=== PATIENT | female | born 1930 | race Caucasian/White ===

== ENCOUNTER 2020-09-03 20:51 | Inpatient (IN) | payer OTHER ==
[~2020-09-03] VITALS: Ht 167.6 cm; Wt 64.4 kg
[2020-09-03 20:57] VITALS: BP 184/75
[2020-09-03 21:22] LABS: ABSOLUTE NEUTROPHILS 8.9 thou/uL (1.4-8.2); BASOPHILS 0.4 % (0.0-2.0); EOSINOPHILS 0.7 % (0.0-3.0); HEMATOCRIT 48.9 % (37.0-47.0); HEMOGLOBIN 15.8 gm/dL (12.0-15.0); MCH 29.8 pg (26.0-34.0); MCHC 32.3 g/dL (28.0-37.0); MCV 92.4 fL (80.0-100.0); MONOCYTES 8.3 % (1.0-8.0); PLATELET COUNT 182 thou/uL (150-400); POLYS 76.6 % (36.0-66.0); RBC 5.29 mil/uL (4.20-5.00); RDW 13.1 % (10.5-14.5); WBC 11.6 thou/uL (4.0-11.0)
[2020-09-03 21:26] LABS: ANION GAP 8 mmol/L (7-16); BUN 25 mg/dL (7-18); CALCIUM 9.3 mg/dL (8.5-10.1); CHLORIDE 100 mmol/L (98-107); CO2 29 mmol/L (21-32); CREATININE 1.2 mg/dL (0.6-1.0); GLUCOSE 159 mg/dL (74-106); POTASSIUM 3.6 mmol/L (3.5-5.1); SODIUM 137 mmol/L (136-145)
[2020-09-03 21:36] LABS: ALBUMIN 3.5 g/dL (3.4-5.0); LIPASE 10481 U/L (73-393); SGOT 147 U/L (15-37); SGPT 82 U/L (14-59); TOTAL BILIRUBIN 0.7 mg/dL (0.2-1.0); TOTAL PROTEIN 7.3 g/dL (6.4-8.2); TROPONIN-I <0.06 ng/mL (<0.06)
[2020-09-03] MEDS ORDERED: CELEXA 20 MG TA20 MG PO (22:06)
[2020-09-03] MEDS ORDERED: MEMANTINE HCL10 MG PO (22:07)
[2020-09-03] MEDS ORDERED: RIVASTIGMINE1 EAC1 TRANSDERM (22:08)
[2020-09-03] MEDS ORDERED: DESYREL150 MG PO (22:08)
--- NOTE | 2020-09-03 22:40 | NUR ---
PATIENT AMBULATED WITH STANDBY ASSISTANCE WITH STEADY GAIT TO RESTROOM AT THIS TIME.
[2020-09-03 23:07] LABS: URINE BILIRUBIN NEGATIVE (Negative); URINE BLOOD 2+ (Negative); URINE CLARITY CLOUDY; URINE COLOR YELLOW; URINE GLUCOSE-RANDOM* TRACE (Negative); URINE KETONES NEGATIVE (Negative); URINE PROTEIN (DIPSTICK) TRACE (Negative); URINE SPECIFIC GRAVITY 1.025 (1.005-1.035)
[2020-09-03 23:08] LABS: URINE LEUKOCYTES-REFLEX 3+ (Negative); URINE NITRITE-REFLEX POSITIVE (Negative)
[2020-09-03 23:36] LABS: SQUAMOUS 0-3 Few /LPF (0-3); URINE WBC-REFLEX >25 Many /HPF (0-5)
[2020-09-03 23:37] LABS: CASTS None Seen /LPF (None Seen); CRYSTALS None Seen /LPF (None Seen); MUCUS 0-3 Light strn/LPF (None Seen); URINE RBC 3-10 Few /HPF (0-2)
[2020-09-04] VITALS (8 sets, daily range): BP systolic 122–168; BP diastolic 63–82
--- NOTE | 2020-09-04 02:47 | NUR ---
PT ADMITTED FROM ED.ARRIVED TO UNIT VIA W/C ACCOMPANIED BY THE ED STAFF.PT IS ALERT TO SELF,PLEASANTLY CONFUSED AND FORGETFUL.FOLLOWS SIMPLE COMMANDS BUT HAS VERY POOR SHORT TERM MEMORY.H/O DEMENTIA.ORIENTED TO RM AND UNIT ACTIVITIES.HAS A DPOA WHO IS HER DAUGHTER DILCIA.ADMITTING DX UTI/GALLSTONES,PANCREATITIS AND CHOLECYSTITIS.PT DENIES ANY PAIN DURING ADMISSION ASSESSMENTS.ASSESSMENT COMPLETED DOCUMENTED.GI CONSULT ORDERED AND POC TO FOLLOW UP WITH THE PT.DENIES N/V.UP TO BATHROOM WITH A STEADY GAIT.NPO AT THIS TIME.SEE OTHER INTERVENTIONS DOCUMENTED.PT DENIES ANY ACUTE DISTRESS AT THIS TIME.HER DAUGHTER TO SIGN ALL THE CONSENTS FORMS WHEN SHE RETURNS TODAY.WILL CONT WITH CURRENT MANAGEMENT.
--- NOTE | 2020-09-04 05:18 | NUR ---
Pt Covid Positive,results called to [facility] [facility]ENT as well as the supervisor hospitality house.Tried to contact albaro Vang and left voicemail to call the unit.Pt not symptomatic at this time.Pt to transfer to .
--- NOTE | 2020-09-04 06:56 | NUR ---
PT TRANSFERRES FROM 4TH FLOOR. CONFUSED . STM LOSS NOTED. REORIENTED SEVERAL TIMES. CALL LIGHT IN REACH. BED ALARM ON. BED DOWN IN LOW LOCKED POSITION. NS AT 100 STARTED ORDERED RIGHT WRIST. CARE PLAN UPDATED.
--- NOTE | 2020-09-04 07:08 | EKG ---
[address] [address] ELECTROCARDIOGRAM REPORT Name: JOE GARCIA Room #: 352-P ADM IN M.R.#: [id number] Admission: 09/04/20 Attend Phys: Britton Marlow MD Discharge: Date of : [birth year] Report #: [id number] [facility] ED Test Date: 2020-09-03 Test Time: 20:54:32 Pat Name: JOE GARCIA Department: Room: [facility] Gender: F Credit Risk Officer: ESTELLA : 1930 Requested By: Philip Bob Order Number: [id number] : Zachary Palmer Measurements Intervals [place] Rate: 79 P: 34 HI: 132 QRS: 1 QRSD: 81 T: 28 QT: 379 QTc: 435 Interpretive Statements Sinus rhythm Borderline T abnormalities, anterior leads No previous ECG available for comparison Electronically Signed On 09-04-2020 7:08:36 FANCY SEWER by Zachary Palmer [email or web address] <ELECTRONICALLY SIGNED> By: Zachary Palmer MD, [facility] 09/04/20 [phone] [id number] Zachary Palmer MD, FACC /EPI
--- NOTE | 2020-09-04 16:08 | NUR ---
ASSUMED CARE OF PT AT 0700. PT PLEASANTLY CONFUSED AND FORTGETFUL. INADVERTENTLY PULLING OUT IV'S EVERYTIME SHE HAS TO USE BATHROOM. PT UP W/ STEADY GAIT, AMBULATING AROUND ROOM INDEPEDENTLY. DISCUSSED WITH PHYSICIAN ABOUT CEASING IV FLUIDS SEEING THAT SHE HAS PULLED OUT 3 IV'S IN LAST 8 HOURS.IV TEAM UNABLE TO PLACE IV IN UPPER ARM WHERE IT IS HARDER TO REACH. IV CURRENTLY SALINE LOCKED - GI AND HOSPITALIST AWARE. 2ND COVID SWAB PENDING. DAUGHTER UPDATED REGARDING PATIENTS PLAN OF CARE - AGREEABLE. DTR SAYS SHE WILL BRING PATIENTS GLASSES TO FACILITY SO SHE IS ABLE TO READ HER MAGAZINES. WCM.
--- NOTE | 2020-09-04 20:21 | NUR ---
PT CONFUSED. GETS OOB FREQUENTLY. HS MEDS GIVEN TO HELP HER CALM DOWN. COVID NEGATIVE. ATTEMPTED TO NOTIFY [facility]ACH WORKER SHERWIN. WAITING FOR CALL BACK. IVFS OFF .PT PULLED OOUT IV SEVERA;L TIMES TODAY. PT ON CLEAR LIQUIDS NOW.
--- NOTE | 2020-09-05 00:34 | NUR ---
SECOND COVID NEGJACKELYN. CLARIFIED [facility] DR DAVIDSON IF PT COULD BE TRANSFERRED OFF FLOOR. WE ARE RERUNNING TYRELL TRUJILLO . WAITING FOR RESULTS.
[2020-09-05 01:06] LABS: GLYCOHEMOGLOBIN (HGB A1C) 6.3 % (4.8-5.6)
[2020-09-05 04:01] VITALS: BP 131/50
[2020-09-05 05:36] LABS: MCH 30.3 pg (26.0-34.0); MCHC 33.4 g/dL (28.0-37.0); MCV 90.7 fL (80.0-100.0); RBC 4.96 mil/uL (4.20-5.00); RDW 13.1 % (10.5-14.5); WBC 4.4 thou/uL (4.0-11.0)
[2020-09-05 05:54] LABS: ALBUMIN 3.3 g/dL (3.4-5.0); CREATININE 1.2 mg/dL (0.6-1.0); POTASSIUM 3.5 mmol/L (3.5-5.1); TOTAL BILIRUBIN 0.8 mg/dL (0.2-1.0); TOTAL PROTEIN 6.8 g/dL (6.4-8.2)
--- NOTE | 2020-09-05 06:32 | NUR ---
PT PROGRESSING TOWARD D/C GOALS. VSS. COVID TEST ON 09/04 105 RERAN ORDERED AND CAME BACK NEGATIVE. DR DAVIDSON NOTIFIED. PT MAY TRANSFER OFF FLOOR WHEN BED AVAILABLE. PUBLIC HEALTH WORKER WAS NOTIFIED.
[2020-09-05 07:25] VITALS: BP 147/76
--- NOTE | 2020-09-05 10:25 | NUR ---
care assumed at 0700. pt alert and oriented x2, able to follow simple conversation. pt is demented and can be impulsive at times. fall precaution in place. dr. perez spoke to pt daughter and she wants her mother d/c, [facility] d/c due order for pt discharge.
[2020-09-05] MEDS ORDERED: CEFUROXIME500 MG PO (11:46)
[2020-09-05] MEDS ORDERED: ACETAMINOPHEN325 M1 PO (11:46)
[2020-09-05 12:13] VITALS: BP 147/76
--- NOTE | 2020-09-05 13:09 | NUR ---
INITIAL ASSESSMENT/DISCHARGE NOTE: SW reviewed chart and spoke with nursing. Pt was admitted from home due to pancreatitis. Pt was transferred to from after a positive COVID test on 09/04. A repeat test was ordered and was negative. Enhanced Isolation precautions discontinued. Pt medically stable to discharge home today. Pt left prior to SW visit. Orders written for HH services. SW spoke with pt and dtr, Ciera, via phone. Introduced role of SW. Pt lives at home alone. Pt's dtr and son-in-law live down the street and are able to assist pt as needed. Pt does not use any DME. Pt and dtr both state that they do not feel that pt needs HH services. SW explained the services and benefits of HH. Pt declined HH and pt's dtr states that they feel pt does not need HH services at this time. Pt's PCP recently retired and pt's dtr has arranged an appt with a new PCP. SW encouraged pt/dtr to contact the PCP office if they feel that pt needs HH. Pt's dtr verbalized understanding. SW updated attending physician. No SW needs identified at this time. SW is available to assist should needs arise.
[2020-09-07 06:06] LABS: IgG 1012 mg/dL (586-1602)
== END 2020-09-05 13:05 | disposition home or self-care (01) | DRG 438 ==
LOC: ER 20:51 → EROBS 09-04 01:18 → 3W 09-04 01:18 → 4W 09-04 01:52 → 3W 09-04 06:05
PROVIDERS: Emergency Medicine; Nurse Practitioner; Nurse Practitioner Family; ADMIT Hospitalist; ATTEND Hospitalist
DX: K85.10 Biliary acute pancreatitis without necrosis or infection (principal); U07.1 COVID-19; N17.0 Acute kidney failure with tubular necrosis; K83.09 Other cholangitis; F02.81 Dementia in other diseases classified elsewhere, unspecified severity, with behavioral disturbance; N30.00 Acute cystitis without hematuria; K76.0 Fatty (change of) liver, not elsewhere classified; G30.9 Alzheimer's disease, unspecified; F32.9 Major depressive disorder, single episode, unspecified; G47.00 Insomnia, unspecified; R73.9 Hyperglycemia, unspecified; R74.01 Elevation of levels of liver transaminase levels; Z60.2 Problems related to living alone; R41.0 Disorientation, unspecified; K76.89 Other specified diseases of liver; Z79.899 Other long term (current) drug therapy; Z90.710 Acquired absence of both cervix and uterus
CPT/HCPCS: 10779